=== PATIENT | female | born 1995 | race Caucasian/White ===

== ENCOUNTER 2021-09-08 04:37 | Emergency (ER) | payer OTHER ==
[~2021-09-08] VITALS: Ht 172.7 cm; Wt 59.0 kg
[2021-09-08] MEDS ORDERED: OSEL75CA PO (08:00)
[2021-09-08] MEDS ORDERED: ZITHROMAX500 MG PO (08:00)
== END 2021-09-08 08:09 ==
LOC: ER 04:37
DX: A49.3 Mycoplasma infection, unspecified site (principal); J10.1 Influenza due to other identified influenza virus with other respiratory manifestations; R50.9 Fever, unspecified; Z20.822 Contact with and (suspected) exposure to COVID-19